=== PATIENT | female | born 1965 | race Caucasian/White ===

== ENCOUNTER 2017-12-20 11:35 | Day surgery (SDC) | payer OTHER ==
[2017-12-18 11:25] VITALS: BMI 26.6
[~2017-12-20 11:35] MED LIST: LACTATED RINGERS 1,000 ML IV SCH; LIDOCAINE 1% 20 ML VIAL (10MG/ML) FOR IV START INTRADERMA PRN
[2017-12-20 11:53] VITALS: TEMP 98
[2017-12-20] MEDS ORDERED: LACTATED RINGERS 1,000 ML IV ONE (11:53)
[2017-12-20] MEDS ORDERED: PROPOFOL 10 MG/ML 20 ML VIAL IV ONE (12:39)
--- NOTE | 2017-12-20 12:48 | P.GSHP ---
History of Present Illness H&P Date: 12/20/17 Chief Complaint: Rectal bleeding Patient here today for colonoscopy. She has had recent diarrhea and bloody stools. Some abdominal pain at times. Last colonoscopy 10 years ago. Family history of colon cancer in a grandfather. Past Medical History Past Medical History: Asthma, Skin Disorder Additional Past Medical History / Comment(s): SL BLOOD IN STOOL. DIARRHEA FREQ , BLOATING, LEFT SIDED ABD PAIN. HAS FINE RASH, NO KNOWN DIAGNOSIS. History of Any Multi-Drug Resistant Organisms: None Reported Past Surgical History: Bowel Resection, Hysterectomy Additional Past Surgical History / Comment(s): SURGERY D/T ENDOMETRIOSIS, HAS 1 OVARY. Past Anesthesia/Blood Transfusion Reactions: Family History of Problems w/ Anesthesia, Motion Sickness, Postoperative Nausea & Vomiting (PONV) Smoking Status: Former smoker Past Alcohol Use History: Rare Additional Past Alcohol Use History / Comment(s): SMOKED SINCE AGE 17, UP TO 1 PPD BUT MOST CURRENTLY 4 CIGARETTES DAILY, QUIT 12/15/17. Past Drug Use History: None Reported - Past Family History Father Family Medical History: Cancer Medications and Allergies Home Medications Medication Instructions Recorded Confirmed Type Cetirizine HCl [Zyrtec] 10 mg PO DAILY 12/18/17 12/18/17 History Cholecalciferol [Vitamin D3] 4,000 unit PO DAILY 12/18/17 12/18/17 History Estradiol [Estrace] 1 mg PO DAILY 12/18/17 12/18/17 History Fish Oil/Dha/Epa [Fish Oil 1,200 2 each PO DAILY 12/18/17 12/18/17 History mg Fish Oil] Progesterone, Micronized 200 mg PO DAILY 12/18/17 12/18/17 History [Progesterone] Thyroid, Pork [[place] Thyroid] 45 mg PO DAILY 12/18/17 12/18/17 History Allergies Allergy/AdvReac Type Severity Reaction Status Date / Time aspirin Allergy SEVERE Verified 12/18/17 11:03 ASTHMA ATTACK Penicillins Allergy TURNED Verified 12/18/17 11:03 RED, HR VERY LOW Surgical - Exam Vital Signs Temp Pulse Resp BP Pulse Ox 98.0 F 84 18 125/82 98 12/20/17 11:52 12/20/17 11:52 12/20/17 11:52 12/20/17 11:52 12/20/17 11:52 Physical exam: General: Well-developed, well-nourished HEENT: Normocephalic, sclerae nonicteric Abdomen: Nontender, nondistended Extremities: No edema Neuro: Alert and oriented Assessment and Plan (1) Rectal bleeding Narrative/Plan: Will proceed with colonoscopy at this time Current Visit: Yes Status: Acute Code(s): K62.5 - HEMORRHAGE OF ANUS AND RECTUM SNOMED Code(s): 84825863
--- NOTE | 2017-12-20 13:16 | P.PCN ---
Date of Procedure: 12/20/17 Procedure(s) Performed: PREOPERATIVE DIAGNOSIS: Rectal bleed POSTOPERATIVE DIAGNOSIS: Small rectal polyp, diverticulosis PROCEDURE: Colonoscopy with biopsy ANESTHESIA: MAC SURGEON: Adrian Smiley M.D. SPECIMENS: Rectal polyp ENDOSCOPIC PROCEDURE: The patient was placed on the endoscopy table in the left decubitus position. The Olympus colonoscope was inserted into the anus and passed under direct visualization to the base of the cecum. The appendiceal orifice was visualized. From that point the scope was slowly withdrawn inspecting all surfaces carefully. There were no neoplastic inflammatory or polypoid lesions throughout the cecum, ascending, transverse, descending and sigmoid colon. In the rectum there was noted be a small polyp that was removed using the cold biopsy forceps. The remainder the rectum appeared normal. No significant hemorrhoidal disease was identified. No fissure was palpable. There was mild left-sided diverticulosis. There was fairly impressive tortuosity throughout the sigmoid colon. The patient was taken to the recovery room in stable condition per anesthesia guidelines. RECOMMENDATIONS: Increase fiber. Follow-up colonoscopy based on pathology findings.
[2017-12-20 13:32] VITALS: BP 115/57; PULSE 79; RESP 20
== END 2017-12-20 14:03 | disposition home or self-care (01) ==
LOC: ORWHC2ENDO 11:35
PROVIDERS: ATTEND Surgery
DX: K62.1 Rectal polyp (principal); K57.90 Diverticulosis of intestine, part unspecified, without perforation or abscess without bleeding; Z80.0 Family history of malignant neoplasm of digestive organs; Q43.8 Other specified congenital malformations of intestine; J45.909 Unspecified asthma, uncomplicated; R21 Rash and other nonspecific skin eruption; Z87.891 Personal history of nicotine dependence; Z79.890 Hormone replacement therapy; Z79.899 Other long term (current) drug therapy; Z88.6 Allergy status to analgesic agent; Z88.0 Allergy status to penicillin
CPT/HCPCS: 88305; 45380; J2704

== ENCOUNTER → 2018-05-27 | Outpatient (CLI) | payer OTHER ==
[2018-05-27 16:51] LABS: Rheumatoid Factor 6 IU/mL (0-15)
== END | disposition home or self-care (01) ==
LOC: LABWHC1 09:34
PROVIDERS: ATTEND Otolaryngology
DX: R68.2 Dry mouth, unspecified (principal); R53.83 Other fatigue; J30.89 Other allergic rhinitis
CPT/HCPCS: 36415; 86038; 86235; 86431

== ENCOUNTER → 2018-11-19 | Outpatient (CLI) | payer OTHER ==
--- NOTE | 2018-11-20 10:20 | MM ---
Reason for exam: screening (asymptomatic). Last mammogram was performed 1 year and 4 months ago. History: Patient is postmenopausal. Physical Findings: A clinical breast exam by your physician is recommended on an annual basis and results should be correlated with mammographic findings. MG 3D Screening Mammo W/Cad Bilateral CC and MLO view(s) were taken. Prior study comparison: July 10, 2017, bilateral MG screening mammo w CAD. July 04, 2016, bilateral MG screening mammo w CAD. The breast tissue is heterogeneously dense. This may lower the sensitivity of mammography. There is no discrete abnormality. ASSESSMENT: Negative, BI-RAD 1 RECOMMENDATION: Routine screening mammogram of both breasts in 1 year.
== END | disposition home or self-care (01) ==
LOC: RADMAMWWP 09:38
PROVIDERS: ATTEND Obstetrics & Gynecology Obstetrics
DX: Z12.31 Encounter for screening mammogram for malignant neoplasm of breast (principal)
CPT/HCPCS: 77063; 77067

== ENCOUNTER → 2019-04-04 | Outpatient (CLI) | payer OTHER ==
--- NOTE | 2019-04-05 21:08 | XR ---
EXAMINATION TYPE: XR Hip Complete RT DATE OF EXAM: 04/04/2019 COMPARISON: NONE HISTORY: 54-year-old female right hip pain TECHNIQUE: 2 views FINDINGS: Mild superolateral joint space narrowing with marginal spurring at the superior acetabulum. No acute fracture, subluxation, or dislocation. Right-sided pelvic phleboliths. IMPRESSION: Mild right hip OA. No acute osseous abnormality seen.
--- NOTE | 2019-04-06 21:48 | XR ---
EXAMINATION TYPE: XR knee complete bilateral DATE OF EXAM: 04/04/2019 COMPARISON: NONE HISTORY: 54-year-old female with knee pain TECHNIQUE: 3 views each side FINDINGS: Tricompartmental joint spaces appear relatively maintained on these nonweightbearing views. No acute fracture, subluxation, or dislocation seen. Extensor mechanisms are intact. There may be trace knee j oint effusions which are nonspecific. IMPRESSION: No acute osseous abnormality seen. Trace knee joint effusions suggested.
== END | disposition home or self-care (01) ==
LOC: RADXRYALE 10:39
PROVIDERS: ATTEND Internal Medicine
DX: M25.551 Pain in right hip (principal); M25.561 Pain in right knee
CPT/HCPCS: 73502

== ENCOUNTER → 2020-09-14 | Outpatient (CLI) | payer OTHER ==
--- NOTE | 2020-09-16 10:02 | MM ---
Reason for exam: screening (asymptomatic). Last mammogram was performed 1 year and 10 months ago. History: Patient is postmenopausal. Taking estrogen beginning at age 51. Taking progesterone beginning at age 51. Physical Findings: A clinical breast exam by your physician is recommended on an annual basis and results should be correlated with mammographic findings. MG 3D Screening Mammo W/Cad Bilateral CC and MLO view(s) were taken. Prior study comparison: November 19, 2018, bilateral MG 3d screening mammo w/cad. July 10, 2017, bilateral MG screening mammo w CAD. There are scattered fibroglandular densities. No significant changes when compared with prior studies. ASSESSMENT: Benign, BI-RAD 2 RECOMMENDATION: Routine screening mammogram of both breasts in 1 year.
== END | disposition home or self-care (01) ==
LOC: RADMAMWWP 07:17
PROVIDERS: ATTEND Obstetrics & Gynecology Obstetrics
DX: Z12.31 Encounter for screening mammogram for malignant neoplasm of breast (principal)
CPT/HCPCS: 77063; 77067

== ENCOUNTER → 2023-06-20 | Outpatient (CLI) | payer OTHER ==
--- NOTE | 2023-06-20 11:49 | CA ---
Exercise Stress Test Report Name: Melba Hess Exam Date: 06/20/2023 09:19 Exam Location: [facility] Ht (in): 69 Wt (lb): 186 BSA: 2.00 Ordering Phys: Wilberto Mathew DO Referring Phys: WILBERTO MATHEW,, Technologist: NATHAN,, Age: 58 Gender: F : 1965 Procedure CPT: Indications: R00.2 palpitations ICD-10 Codes: Patient History: Chest pain palpitations Medications: PRAVASTATIN,,,,,, RECREATION THERAPY AIDES TEACHER THYROID,,,,,, MAGNESIUM,,,,,, MULTIVITAMIN,,,,,, FISH OIL,,,,, Meds past 24 hrs: Pretest Chest Pain: STRESS TEST Rogelio Protocol Exercise Duration (min:sec): 09:[address] Depressions (mm): Angina Score: Gage Score: Resting HR (bpm): 69 Peak HR (bpm): 143 Resting BP (mmHg): 106 / 70 Peak BP (mmHg): 170 / 48 MPHR: 163 Target HR: 139 % MPHR: 88 METS: 10.3 Total Dose: Peak Dose: Atropine: Double Product: 83568 BP Response: Stress Termination: TARGET HR REACHED/MAX EXERTION Stress Symptoms: DIFFICULTY IN BREATHING Stress Summary: ECG ANALYSIS Resting ECG: Stress ECG: CONCLUSIONS Good exercise capacity on a Rogelio protocol, 9 minutes Normal twelve-lead EKG at baseline No ECG evidence for ischemia Normal heart rate and blood pressure response Dr. Brandon Stiles MD (Electronically Signed) Final Date: 20 June 2023 11:48
== END | disposition home or self-care (01) ==
LOC: RADNMMAIN 08:55
PROVIDERS: ATTEND Family Medicine
DX: R00.2 Palpitations (principal)
CPT/HCPCS: 93017

== ENCOUNTER → 2024-12-16 | Outpatient (CLI) | payer BC ==
--- NOTE | 2024-12-16 09:22 | MM ---
Reason for Exam: Screening (asymptomatic). Last mammogram was performed 2 year(s) and 11 month(s) ago. Patient History: Menarche at age 13. First Full-Term at age 19. Left ovary removed at age 35. Hysterectomy at age 35. Postmenopausal. Estrogen, starting at age 51. Progesterone, starting at age 51. Mother had breast cancer, age 80. Risk Values: Tara 5 year model risk: 2.5%. NCI Lifetime model risk: 13.8%. Prior Study Comparison: 11/19/2018 Bilateral Screening Mammogram, [facility]. 09/14/2020 Bilateral Screening Mammogram, [facility]. 01/17/2022 Bilateral Screening Mammogram, [facility]. Tissue Density: There are scattered areas of fibroglandular density. Findings: Analyzed By CAD. Areas of asymmetric density on the left remain unchanged. There is no suspicious group of microcalcifications or new suspicious mass in either breast. Overall Assessment: Benign, BI-RAD 2 Management: Screening Mammogram of both breasts in 1 year. Patient should continue monthly self-breast exams. A clinical breast exam by your physician is recommended on an annual basis. This exam should not preclude additional follow-up of suspicious palpable abnormalities. Note on Tara scores and lifetime risk: 1. A Tara score greater than 3% is considered moderate risk. If this is the case, consider specialist referral to assess eligibility for a risk reducing agent. 2. If overall lifetime risk for the development of breast cancer is 20% or higher, the patient may qualify for future screening with alternating mammogram and breast MRI. [facility], , 12/16/2024 9:19 AM. Electronically signed and approved by: Tayler Garcia M.D. Radiologist
== END | disposition home or self-care (01) ==
LOC: RADMAMWWP 07:36
PROVIDERS: ATTEND Obstetrics & Gynecology Obstetrics
DX: Z12.31 Encounter for screening mammogram for malignant neoplasm of breast (principal); R92.323 Mammographic fibroglandular density, bilateral breasts; Z78.0 Asymptomatic menopausal state; Z80.3 Family history of malignant neoplasm of breast
CPT/HCPCS: 77063; 77067